=== PATIENT | male | born 1955 | race African-American/Black ===

== ENCOUNTER → 2016-04-12 | Outpatient (CLI) | payer OTHER | LOC: OD 10:17 | PROVIDERS: ATTEND Family Medicine | DX: M25.562 Pain in left knee (principal) ==

== ENCOUNTER 2018-04-17 21:52 | Emergency (ER) | payer OTHER ==
[2018-04-17] MEDS ORDERED: IPRATROPIUM/ALBUTEROL 0.5-2.5 MG/3 ML AMPUL NEB ONE (22:12)
[2018-04-17] MEDS ORDERED: PREDNISONE 20 MG TABLET PO ONE (22:12)
[2018-04-17] MEDS ORDERED: ACETAMINOPHEN 325 MG TABLET PO ONE (22:18)
[2018-04-17] MEDS: ALBUTEROL SULFATE 0.083% NEB 2.5 MG/3 ML AMPUL NEB SCH ×2 (22:26→22:28)
--- NOTE | 2018-04-17 22:38 | RADIOLOGY REPORT (SQ) ---
EXAM DESCRIPTION: XR CHEST 2 VIEWS COMPLETED DATE/TME: 04/17/2018 00:00 CLINICAL HISTORY: 62 years, Male, COUGH/DIFFICULTY BREATHING COMPARISON: 03/14/2013 chest NUMBER OF VIEWS: 2 TECHNIQUE: Frontal and lateral views of the chest LIMITATIONS: None. FINDINGS: Heart size is normal. Lungs are clear. No pneumothorax IMPRESSION: Negative chest copyright 2010 [employer]- All Rights Reserved
[2018-04-17 23:02] LABS: ABSOLUTE EOSINOPHILS # (AUTO) 0.1 10^3/uL (0.0-0.6); ABSOLUTE LYMPHOCYTES (AUTO) 0.6 10^3/uL (0.5-4.7); ABSOLUTE MONOCYTES (AUTO) 0.8 10^3/uL (0.1-1.4); ABSOLUTE NEUT (AUTO) 5.6 10^3/uL (1.7-8.2); BASOPHILS % (AUTO) 0.6 % (0-2); EOSINOPHILS % (AUTO) 0.9 % (0-6); HEMATOCRIT 39.3 % (37.9-51.0); HEMOGLOBIN 13.3 g/dL (13.5-17.0); LYMPHOCYTES % (AUTO) 8.6 % (13-45); MEAN CORPUSCULAR HEMOGLOBIN 28.6 pg (27.0-33.4); MEAN CORPUSCULAR HGB CONC 33.9 g/dL (32.0-36.0); MEAN CORPUSCULAR VOLUME 85 fl (80-97); MONOCYTES % (AUTO) 11.7 % (3-13); PLATELET COUNT 193 10^3/uL (150-450); RED BLOOD COUNT 4.65 10^6/uL (4.35-5.55); RED CELL DISTRIBUTION WIDTH 13.4 % (11.5-14.0); SEGMENTED NEUTROPHILS % (AUTO) 78.2 % (42-78); TOTAL CELLS COUNTED % (AUTO) 100 %; WHITE BLOOD COUNT 7.2 10^3/uL (4.0-10.5)
--- NOTE | 2018-04-17 23:05 | ER Document Report ---
ED Flu Like - General Chief Complaint: Flu Symptoms Stated Complaint: COUGH/FEVER Time Seen by Provider: 04/17/18 23:04 Primary Care Provider: WESTON ARREDONDO MD [COMMUNITY BASED STAFF] - Follow up as needed Information source: Patient, Relative Notes: Patient is a 62-year-old male with no significant past medical history who presents with 2 days of fever associated with a nonproductive cough, body aches, chills, and malaise. Patient is unsure of any sick contacts. He denies any confusion or disorientation, no chest pain, no difficulty breathing, no difficulty urinating, and no ataxia. TRAVEL OUTSIDE OF THE [place] IN LAST 30 DAYS: No - HPI Onset: Other - 2 days ago Timing/Duration: Constant Quality of pain: Achy Severity: Moderate Pain Level: Denies Recent travel: No: Domestic, International, Air, Bus, Car, Train [place] exposure: No Tick/Insect bite: No: Confirmed, Suspected, Camping/Hiking, Other Associated symptoms: Body/muscle aches, Chills, Nonproductive cough, Fever Similar symptoms previously: No Recently seen / treated by doctor: No - Related Data Allergies/Adverse Reactions: No Known Drug Allergies Allergy (Verified 04/09/13 10:00) Past Medical History - General Information source: Patient, Relative - Social History Smoking Status: Never Smoker Chew tobacco use (# tins/day): No Frequency of alcohol use: twice a week Drug Abuse: None Lives with: Family Family History: None, Reviewed & Not Pertinent Patient has suicidal ideation: No Patient has homicidal ideation: No - Past Medical History Cardiac Medical History: Reports: Hx Hypertension - CONTROLLED WITH MEDICATIONS Denies: Hx Coronary Artery Disease - HIGH CHOLESTEROL, Hx Heart Attack Pulmonary Medical History: Reports: None Denies: Hx Asthma, Hx Bronchitis, Hx COPD, Hx Pneumonia EENT Medical History: Reports: None Neurological Medical History: Reports: None. Denies: Hx Cerebrovascular Accident, Hx Seizures Endocrine Medical History: Reports: None Renal/ Medical History: Reports: None. Denies: Hx Peritoneal Dialysis Malignancy Medical History: Reports None GI Medical History: Reports: None Musculoskeletal Medical History: Reports Hx Arthritis - RIGHT KNEE Skin Medical History: Reports None Psychiatric Medical History: Reports: Hx Depression - PTSD, hallucinations Traumatic Medical History: Reports: None Infectious Medical History: Reports: None Surgical Hx: Negative Past Surgical History: Reports: Hx Orthopedic Surgery - R knee - Immunizations Immunizations up to date: Yes Hx Diphtheria, Pertussis, Tetanus Vaccination: Yes History of Influenza Vaccine for 12/2016 - 05/2017 Season: No Review of Systems - Review of Systems Constitutional: See HPI, Chills, Fever, Malaise EENT: No symptoms reported Cardiovascular: No symptoms reported Respiratory: See HPI, Cough Gastrointestinal: No symptoms reported Genitourinary: No symptoms reported Male Genitourinary: No symptoms reported Musculoskeletal: No symptoms reported Skin: No symptoms reported Hematologic/Lymphatic: No symptoms reported Neurological/Psychological: No symptoms reported -: Yes All other systems reviewed and negative Physical Exam - Vital signs Vitals: Temp Pulse Resp BP Pulse Ox 101.9 F H 87 20 143/78 H 98 04/17/18 22:11 04/17/18 22:11 04/17/18 22:11 04/17/18 22:11 04/17/18 22:11 Interpretation: Normal - Notes Notes: Tired appearing but in no acute distress - General General appearance: Appears well, Alert - HEENT Head: Normocephalic, Atraumatic Eyes: Normal Pupils: PERRL - Respiratory Respiratory status: No respiratory distress Chest status: Nontender Breath sounds: Normal Chest palpation: Normal - Cardiovascular Rhythm: Tachycardia Heart sounds: Normal auscultation Murmur: No - Abdominal Inspection: Normal Distension: No distension Bowel sounds: Normal Tenderness: Nontender Organomegaly: No organomegaly - Rectal Notes: Deferred - Genitourinary Notes: Deferred - Back Back: Normal, Nontender - Extremities General upper extremity: Normal inspection, Nontender, Normal color, Normal ROM, Normal temperature General lower extremity: Normal inspection, Nontender, Normal color, Normal ROM, Normal temperature, Normal weight bearing. No: Jose's sign - Neurological Neuro grossly intact: Yes Cognition: Normal Orientation: AAOx4 Jones Coma Scale Eye Opening: Spontaneous Jones Coma Scale Verbal: Oriented Jones Coma Scale Motor: Obeys Commands Nancy Coma Scale Total: 15 Speech: Normal Motor strength normal: LUE, RUE, LLE, RLE Sensory: Normal - Psychological Associated symptoms: Normal affect, Normal mood - Skin Skin Temperature: Warm Skin Moisture: Dry Skin Color: Normal Course - Re-evaluation Re-evalutation: 04/18/18 00:14 Chest x-ray shows no acute pneumonia, lab work thus far is unremarkable. Cardiac enzymes and influenza swab still pending. Temperature has already started to resolve after Tylenol. Will give IV fluids and reassess. 04/18/18 01:55 Patient is influenza A positive. However he is outside of the window for Tamiflu. Patient will be discharged home with return precautions and follow-up. Patient voices understanding and agreeing with the plan. - Vital Signs Vital signs: Temp Pulse Resp BP Pulse Ox 100.7 F H 87 21 H 143/78 H 98 04/17/18 23:14 04/17/18 22:11 04/17/18 23:00 04/17/18 22:11 04/17/18 23:00 - Laboratory Result Diagrams: 04/17/18 22:40 04/17/18 22:40 Laboratory results interpreted by me: 04/17/18 04/17/18 04/17/18 22:40 22:40 22:40 Hgb 13.3 L Seg Neutrophils % 78.2 H Lymphocytes % 8.6 L VBG HCO3 32.3 H Sodium 134.3 L Chloride 94 L Carbon Dioxide 31 H Glucose 120 H Urine Ascorbic Acid 04/18/18 00:28 Hgb Seg Neutrophils % Lymphocytes % VBG HCO3 Sodium Chloride Carbon Dioxide Glucose Urine Ascorbic Acid 40 H - Diagnostic Test Radiology reviewed: Image reviewed, Reports reviewed - EKG Interpretation by Me EKG shows normal: Sinus rhythm Rate: Tachycardia Rhythm: NSR [place]/QRS: No: Right axis deviation, Left axis deviation, RBBB, LBBB, IVCD, LAHB/LAFB, LPHB/LPFB, Bifasicular block Voltage: No: Increased voltage, Consistant with LVH, Decreased voltage, Throughout, Limb leads P Waves: No: TATI, LAE, Absent, AV Dissociation, Other When compared to previous EKG there are: No significant change Discharge - Discharge Clinical Impression: Viral syndrome, Influenza due to influenza virus, type A, human Condition: Good Disposition: HOME, SELF-CARE Instructions: Influenza ([facility]) [id number] Additional Instructions: Please follow-up with your regular physician as needed. Return to the emergency department if you experience profound weakness, chest pain, or have any other concerning symptom. Prescriptions: Hydrocodone/Chlorphen P-Stirex [Tussionex Pennkinetic Susp] 10 ml PO BID PRN #[id number] [email or web address] PRN Reason: Cough Referrals: WESTON ARREDONDO MD [COMMUNITY BASED STAFF] - Follow up as needed Print Language: Bermudian
[2018-04-17 23:08] LABS: INTERNATIONAL RATION (INR) 0.92; PROTHROMBIN TIME 12.9 SEC (11.4-15.4)
[2018-04-17 23:12] LABS: VENOUS BLOOD BASE EXCESS 6.4 mmol/L; VENOUS BLOOD HCO3 32.3 mmol/L (20-32); VENOUS BLOOD PCO2 51.6 mmHg (35-63); VENOUS BLOOD PH 7.42 (7.30-7.42)
[2018-04-17 23:18] LABS: A TYPE INFLUENZA AG POSITIVE (NEGATIVE); B INFLUENZA AG NEGATIVE (NEGATIVE)
[2018-04-17 23:37] LABS: ALANINE AMINOTRANSFERASE 37 U/L (21-72); ALBUMIN 4.6 g/dL (3.5-5.0); ALKALINE PHOSPHATASE 59 U/L (38-126); ANION GAP 9 (5-19); ASPARTATE AMINO TRANSFERASE 31 U/L (17-59); BILIRUBIN,DIRECT 0.3 mg/dL (0.0-0.4); BILIRUBIN,TOTAL 0.4 mg/dL (0.2-1.3); BLOOD UREA NITROGEN 10 mg/dL (7-20); CARBON DIOXIDE 31 mmol/L (22-30); CHLORIDE 94 mmol/L (98-107); GLUCOSE 120 mg/dL (75-110); POTASSIUM 3.6 mmol/L (3.6-5.0); SODIUM 134.3 mmol/L (137-145); TOTAL PROTEIN 7.4 g/dL (6.3-8.2)
[2018-04-18] MEDS ORDERED: NORMAL SALINE 1000 ML 1,000 ML IV ONE (00:07)
[2018-04-18] MEDS ORDERED: DEXAMETHASONE SOD PHOS INJ 10 MG/1 ML VIAL IV ONE (00:08)
[2018-04-18 00:40] LABS: APPEARANCE,URINE CLEAR; BILIRUBIN,URINE NEGATIVE (NEGATIVE); COLOR,URINE YELLOW; GLUCOSE, URINE NEGATIVE (NEGATIVE); KETONES,URINE NEGATIVE (NEGATIVE); LEUKOCYTE ESTERASE,URINE NEGATIVE (NEGATIVE); NITRITE,URINE NEGATIVE (NEGATIVE); PROTEIN,URINE NEGATIVE (NEGATIVE); URINE SPECIFIC GRAVITY 1.015; UROBILINOGEN,URINE NEGATIVE mg/dL (<2.0)
[2018-04-18 02:15] VITALS: BP 132/71
--- NOTE | 2018-04-18 07:26 | EKG REPORT ---
SEVERITY:- OTHERWISE NORMAL ECG - SINUS TACHYCARDIA ATRIAL PREMATURE COMPLEX : Confirmed by: Angelina Couch MD 18-Apr-2018 07:25:40
== END 2018-04-18 02:24 | disposition home or self-care (01) ==
LOC: ER 21:52
DX: J10.1 Influenza due to other identified influenza virus with other respiratory manifestations (principal); B34.9 Viral infection, unspecified; R05 Cough; R50.9 Fever, unspecified; M79.10 Myalgia, unspecified site; R53.81 Other malaise; I10 Essential (primary) hypertension; Z79.899 Other long term (current) drug therapy
CPT/HCPCS: 93005; 94640 ×2; 99284; 96365; 36415; 87040; 87086; 85025; 85610; 80053; 81001; 82803; 83605; 87804; 71046; 93010; J7512; J7030; J1100; J7620

== ENCOUNTER 2018-12-28 07:30 | Inpatient (IN) | payer MEDICARE, OTHER ==
[2019-01-28] MEDS ORDERED: CEFAZOLIN INJ 1 GM VIAL IV PRN (05:00)
[2019-01-28] MEDS ORDERED: PANTOPRAZOLE SODIUM 20 MG TABLET.DR PO PRN (05:00)
[2019-01-28] MEDS ORDERED: LIDOCAINE 0.5% INJ-PF (5 MG/ML) 50 ML SDV SUBCUT PRN (05:00)
[2019-01-28] MEDS ORDERED: CEFAZOLIN INJ 1 GM VIAL ONE (05:00)
[2019-01-28] MEDS ORDERED: IBUPROFEN 800 MG in NORMAL SALINE 250 ML IV PRN (05:00)
[2019-01-28] MEDS ORDERED: PANTOPRAZOLE SODIUM 20 MG TABLET.DR PO ONE (05:00)
[2019-01-28] MEDS ORDERED: VANCOMYCIN HCL 1,000 MG in DEXTROSE 5%-WATER 250 ML IV PRN (05:00)
[2019-01-28] MEDS ORDERED: OXYCODONE HCL SR 10 MG TABLET PO PRN (05:00)
[2019-01-28] MEDS ORDERED: OXYCODONE HCL SR 10 MG TABLET PO ONE (05:00)
[2019-01-28] MEDS ORDERED: BUPIVACAINE INJ/PF LIPOSOME/PF 266 MG/20 ML SDV INJ PRN (05:00)
[2019-01-28] MEDS ORDERED: LACTATED RINGERS 1000 ML IV PRN (05:00)
[2019-01-28] MEDS ORDERED: ONDANSETRON HCL INJ/PF 4 MG/2 ML SDV ONE (06:24)
[2019-01-28] MEDS ORDERED: MIDAZOLAM 2 MG/2 ML INJ ONE (06:24)
[2019-01-28] MEDS ORDERED: FENTANYL CITRATE INJ/PF 100 MCG/2 ML AMPUL ONE (06:24)
[2019-01-28] MEDS ORDERED: DEXAMETHASONE SOD PHOSPHATE INJ 4 MG/1 ML VIAL ONE (06:24)
[2019-01-28] MEDS ORDERED: TRANEXAMIC ACID INJ/PF 1,000 MG/10 ML SDV ONE ×2 (06:25→09:53)
[2019-01-28] MEDS ORDERED: PROPOFOL INJ 200 MG/20 ML VIAL IV ONE ×2 (06:25→09:09)
[2019-01-28] MEDS ORDERED: LIDOCAINE 0.5% INJ-PF (5 MG/ML) 50 ML SDV ONE (06:27)
[2019-01-28] MEDS ORDERED: PROMETHAZINE HCL INJ 25 MG/1 ML VIAL IV PRN ×2 (08:01)
[2019-01-28] MEDS ORDERED: DIPHENHYDRAMINE HCL 50 MG/ML VIAL IV PRN ×2 (08:01→08:43)
[2019-01-28] MEDS ORDERED: ONDANSETRON HCL INJ/PF 4 MG/2 ML SDV IV PRN ×2 (08:01→08:43)
[2019-01-28] MEDS ORDERED: MEPERIDINE HCL/PF INJ 25 MG/1 ML DISP.SYRIN IV PRN (08:01)
[2019-01-28] MEDS ORDERED: MORPHINE SULFATE 10 MG/ML INJ IV PRN (08:01)
[2019-01-28] MEDS ORDERED: FENTANYL CITRATE INJ/PF 100 MCG/2 ML AMPUL IV PRN ×3 (08:01)
[2019-01-28] MEDS ORDERED: HYDROXYZINE PAMOATE 50 MG CAPSULE PO PRN (08:42)
--- NOTE | 2019-01-28 08:42 | Operative Report ---
Operative Report DATE OF SURGERY: 01/28/19 PREOPERATIVE DIAGNOSIS: Right knee arthritis OPERATION: Right knee arthroplasty SURGEON: HETAL CHISHOLM ANESTHESIA: Spinal TISSUE REMOVED OR ALTERED: Bone to pathology ESTIMATED BLOOD LOSS: 75 PROCEDURE: Implants used: Femur: [place] triathlon size 6 CR uncemented femur Tibia: 5 uncemented tibia Tibial liner: 9 mm CS insert Patella: 38 mm oval uncemented patella Procedure with the patient supine on the operating table the right the limb is prepped and draped in a sterile fashion. The limb was elevated for exsanguination and the tourniquet inflated to 280 torr. A standard midline median parapatellar approach the knee is taken. Access is gained to the femoral canal through the intercondylar notch. Intramedullary alignment instrumentation used to resect 10 mm of distal femur in 5 of valgus. Sizing guide indicated a size 6 femur. Appropriate cutting jig is then used to fashion anterior posterior and chamfer cuts. A trial reduction femurs performed and this is judged to be adequate. Attention was next turned to the tibia. Using an extra medullary alignment system 9 millimeters was resected off the lateral tibial plateau. This is sized to a size 5 tibia. A trial reduction was now performed with a 6 femur and a 5 tibia using a 9 millimeters spacer. It is full extension and central patellofemoral tracking. The articular surface the patella was next resected using an oscillating saw. All trial implants were removed. The above implants are impacted into place. The tourniquet was deflated hemostasis obtained the wound is then closed in layers using interrupted Vicryl followed by shamika. A sterile compressive dressing was applied and the patient returned to recovery room in satisfactory condition.
[2019-01-28] MEDS ORDERED: ONDANSETRON 4 MG TAB.RAPDIS PO PRN (08:43)
[2019-01-28] MEDS ORDERED: MAG HYDROX/AL HYDROX/SIMETH SUSP 30 ML UDCUP PO PRN (08:43)
[2019-01-28] MEDS ORDERED: TRANEXAMIC ACID INJ/PF 1,000 MG/10 ML SDV IV PRN (09:14)
[2019-01-28] MEDS ORDERED: (PENDING PHARMACY ID) (Venlafaxine Hcl [Venlafaxine Hcl Er] 225 MG) PO SCH (10:00)
--- NOTE | 2019-01-28 10:54 | RADIOLOGY REPORT (SQ) ---
EXAM DESCRIPTION: KNEE RIGHT 2 VIEWS COMPLETED DATE/TIME: 01/28/2019 9:33 am REASON FOR STUDY: Post OP -Long Cassette in PACU M17.11 UNILATERAL PRIMARY OSTEOARTHRITIS, RIGHT KN EE COMPARISON: None. NUMBER OF VIEWS: Two view(s). TECHNIQUE: Digital radiographic images of the right knee post-procedure. LIMITATIONS: None. FINDINGS: BONES: No worrisome or unexpected findings post-procedure. DEVICE: Total knee arthroplasty SOFT TISSUES: No worrisome findings. Expected postoperative soft tissue changes. IMPRESSION: SATISFACTORY POSTOPERATIVE RIGHT KNEE. TECHNICAL DOCUMENTATION: JOB ID: [id number] [employer]- All Rights Reserved Reading location - IP/workstation name: [email or web address]
[2019-01-28] MEDS: SENNOSIDES/DOCUSATE 8.6-50 MG 1 EACH TABLET PO SCH ×2 (12:39→18:19)
[2019-01-28] MEDS: ASPIRIN 81 MG TABLET, CHEWABLE PO SCH (12:40)
[2019-01-28] MEDS: PRENATAL VITAMIN W DHA CAPSULE PO SCH (12:40)
[2019-01-28] MEDS: OXYCODONE HCL IR 5 MG TABLET PO PRN ×2 (12:40→20:57)
[2019-01-28] MEDS: HYDROCHLOROTHIAZIDE 25 MG TABLET PO SCH (12:41)
[2019-01-28] MEDS: OXYCODONE HCL SR 10 MG TABLET PO SCH ×2 (13:36→21:25)
[2019-01-28] MEDS: RISPERIDONE 1 MG TABLET PO SCH ×2 (14:20→18:18)
[2019-01-28] MEDS ORDERED: VENLAFAXINE HCL 75 MG CAP.SR.24H PO ONE (14:30)
[2019-01-28] MEDS: IBUPROFEN 800 MG in NORMAL SALINE 250 ML IV SCH ×2 (14:33→22:25)
[2019-01-28] MEDS: VENLAFAXINE HCL 75 MG CAP.SR.24H PO SCH (14:35)
[2019-01-28] MEDS ORDERED: VANCOMYCIN HCL 1,000 MG in DEXTROSE 5%-WATER 250 ML IV ONE (20:45)
[2019-01-28] MEDS: RINGERS SOLUTION,LACTATED 1,000 ML IV PRN (20:49)
[2019-01-28] MEDS: ATORVASTATIN CALCIUM 80 MG TABLET PO SCH (21:24)
[2019-01-29] MEDS: PANTOPRAZOLE SODIUM 40 MG TABLET.DR PO SCH (05:22)
[2019-01-29] MEDS: IBUPROFEN 800 MG in NORMAL SALINE 250 ML IV SCH ×3 (05:22→21:05)
[2019-01-29 05:38] LABS: HEMATOCRIT 28.5 % (37.9-51.0); HEMOGLOBIN 9.6 g/dL (13.5-17.0); MEAN CORPUSCULAR HEMOGLOBIN 27.9 pg (27.0-33.4); MEAN CORPUSCULAR HGB CONC 33.8 g/dL (32.0-36.0); MEAN CORPUSCULAR VOLUME 83 fl (80-97); PLATELET COUNT 200 10^3/uL (150-450); RED BLOOD COUNT 3.45 10^6/uL (4.35-5.55); RED CELL DISTRIBUTION WIDTH 13.5 % (11.5-14.0); WHITE BLOOD COUNT 7.1 10^3/uL (4.0-10.5)
[2019-01-29 06:22] LABS: BLOOD UREA NITROGEN 15 mg/dL (7-20); CALCIUM 8.2 mg/dL (8.4-10.2); GLUCOSE 115 mg/dL (75-110); POTASSIUM 4.4 mmol/L (3.6-5.0)
[2019-01-29 06:28] LABS: ANION GAP 5 (5-19); CARBON DIOXIDE 31 mmol/L (22-30); CHLORIDE 102 mmol/L (98-107)
[2019-01-29] MEDS: RINGERS SOLUTION,LACTATED 1,000 ML IV PRN ×2 (06:40→14:45)
--- NOTE | 2019-01-29 07:11 | PDOC DISCHARGE SUMMARY ---
Impression - Admit/DC Date/PCP Admission Date/Primary Care Provider: 01/28/19 05:34 [facility] Discharge Date: 01/29/19 - Additional Information Resuscitation Status: Full Code Discharge Diet: Regular Discharge Activity: Balance Activity w/Rest, No tub bath Referrals: HETAL CHISHOLM MD [ACTIVE STAFF] - 02/07/19 9:00 am Home Medications: Aspirin [Aspirin 81 mg Chewable Tablet] 81 mg PO DAILY 04/09/13 Atorvastatin Calcium 40 mg PO QHS 04/09/13 Hydrochlorothiazide 25 mg PO DAILY 04/09/13 Hydroxyzine Pamoate [Vistaril 50 mg Capsule] 25 mg PO QHS PRN 04/09/13 Risperidone 0.5 mg PO BID 04/09/13 Venlafaxine HCl [Venlafaxine Hcl Er] 225 mg PO DAILY 04/09/13 History of Present Illiness History of Present Illness: JEFFERSON MIRELES is a 63 year old male 63-year-old black male with progressive right knee pain and functional disability second osteoarthritis. Patient admitted for elective right knee arthroplasty. Hospital Course Hospital Course: Patient admitted through the operating where she undergoes uncomplicated right knee arthroplasty. Return to the point satisfactory vision. He has some issues with nausea and malaise which limited his progress with physical therapy on the day of surgery. On the first postoperative morning his compressive dressing is removed. Patient is able to do straight leg raise without difficulty. Underlying OpSite dressing is clean dry and intact. Distal neurovascular examination is intact. Physical Exam Vital Signs: Temp Pulse Resp BP Pulse Ox 36.8 C 73 17 111/57 L 91 L 01/28/19 23:56 01/28/19 23:56 01/28/19 23:56 01/28/19 23:56 01/28/19 23:56 Intake & Output 01/28/19 01/29/19 01/30/19 06:59 06:59 06:59 Intake Total 0 4670 Output Total 1900 Balance 0 2770 Weight 91.4 kg General appearance: PRESENT: no acute distress, mild distress Head exam: PRESENT: normocephalic Respiratory exam: PRESENT: unlabored Cardiovascular exam: PRESENT: RRR Pulses: PRESENT: +1 pedal pulses bilateral Vascular exam: PRESENT: normal capillary refill GI/Abdominal exam: PRESENT: soft Rectal exam: PRESENT: deferred Extremities exam: PRESENT: other - Right lower extremity dressing clean dry and intact. Minimal pedal edema. Distal neurovascular examination is intact. Neurological exam: PRESENT: alert, awake, oriented to person, oriented to place, oriented to time, oriented to situation. ABSENT: motor sensory deficit Psychiatric exam: PRESENT: appropriate affect, normal mood. ABSENT: homicidal ideation, suicidal ideation Skin exam: PRESENT: dry, intact, warm. ABSENT: cyanosis, rash Results Laboratory Results: WBC 7.1 10^3/uL (4.0-10.5) 01/29/19 05:02 RBC 3.45 10^6/uL (4.35-5.55) L 01/29/19 05:02 Hgb 9.6 g/dL (13.5-17.0) L 01/29/19 05:02 Hct 28.5 % (37.9-51.0) L 01/29/19 05:02 MCV 83 fl (80-97) 01/29/19 05:02 MCH 27.9 pg (27.0-33.4) 01/29/19 05:02 MCHC 33.8 g/dL (32.0-36.0) 01/29/19 05:02 RDW 13.5 % (11.5-14.0) 01/29/19 05:02 Plt Count 200 10^3/uL (150-450) 01/29/19 05:02 Sodium 137.6 mmol/L (137-145) 01/29/19 05:02 Potassium 4.4 mmol/L (3.6-5.0) 01/29/19 05:02 Chloride 102 mmol/L (98-107) 01/29/19 05:02 Carbon Dioxide 31 mmol/L (22-30) H 01/29/19 05:02 Anion Gap 5 (5-19) 01/29/19 05:02 BUN 15 mg/dL (7-20) 01/29/19 05:02 Creatinine 1.13 mg/dL (0.52-1.25) 01/29/19 05:02 Est GFR ( Amer) > 60 (>60) 01/29/19 05:02 Est GFR (MDRD) Non-Af > 60 (>60) 01/29/19 05:02 Glucose 115 mg/dL (75-110) H 01/29/19 05:02 Calcium 8.2 mg/dL (8.4-10.2) L 01/29/19 05:02 Impressions: Knee X-Ray 01/28/19 08:44 IMPRESSION: SATISFACTORY POSTOPERATIVE RIGHT KNEE. Plan Plan of Treatment: Patient be discharged with home health services and DME. Follow-up with Dr. Chisholm and [facility] for surgery in 2 weeks for staple removal. Stroke Is this a Stroke Patient?: No Stroke Pt being discharged on Anti-thrombolytic therapy?: Yes Acute Heart Failure - Is this a Heart Failure Patient?: No
[2019-01-29] MEDS: OXYCODONE HCL IR 5 MG TABLET PO PRN (08:23)
[2019-01-29] MEDS: ASPIRIN 81 MG TABLET, CHEWABLE PO SCH (09:49)
[2019-01-29] MEDS: PRENATAL VITAMIN W DHA CAPSULE PO SCH (09:50)
[2019-01-29] MEDS: SENNOSIDES/DOCUSATE 8.6-50 MG 1 EACH TABLET PO SCH ×2 (09:50→18:05)
[2019-01-29] MEDS: RISPERIDONE 1 MG TABLET PO SCH ×2 (09:50→18:04)
[2019-01-29] MEDS: HYDROCHLOROTHIAZIDE 25 MG TABLET PO SCH (09:53)
[2019-01-29] MEDS: VENLAFAXINE HCL 75 MG CAP.SR.24H PO SCH (10:10)
[2019-01-29] MEDS: OXYCODONE HCL SR 10 MG TABLET PO SCH ×2 (10:11→21:06)
[2019-01-29] MEDS: ATORVASTATIN CALCIUM 80 MG TABLET PO SCH (21:06)
[2019-01-30] MEDS: RINGERS SOLUTION,LACTATED 1,000 ML IV PRN (02:20)
[2019-01-30] MEDS: PANTOPRAZOLE SODIUM 40 MG TABLET.DR PO SCH (05:05)
[2019-01-30] MEDS: IBUPROFEN 800 MG in NORMAL SALINE 250 ML IV SCH (05:06)
[2019-01-30 07:18] LABS: HEMATOCRIT 27.3 % (37.9-51.0); HEMOGLOBIN 9.3 g/dL (13.5-17.0); MEAN CORPUSCULAR HEMOGLOBIN 28.3 pg (27.0-33.4); MEAN CORPUSCULAR HGB CONC 34.2 g/dL (32.0-36.0); MEAN CORPUSCULAR VOLUME 83 fl (80-97); PLATELET COUNT 170 10^3/uL (150-450); RED CELL DISTRIBUTION WIDTH 13.8 % (11.5-14.0); WHITE BLOOD COUNT 6.9 10^3/uL (4.0-10.5)
[2019-01-30] MEDS: HYDROCHLOROTHIAZIDE 25 MG TABLET PO SCH (10:38)
[2019-01-30] MEDS: RISPERIDONE 1 MG TABLET PO SCH (10:59)
[2019-01-30] MEDS: ASPIRIN 81 MG TABLET, CHEWABLE PO SCH (10:59)
[2019-01-30] MEDS: PRENATAL VITAMIN W DHA CAPSULE PO SCH (10:59)
[2019-01-30] MEDS: SENNOSIDES/DOCUSATE 8.6-50 MG 1 EACH TABLET PO SCH (10:59)
[2019-01-30] MEDS: VENLAFAXINE HCL 75 MG CAP.SR.24H PO SCH (11:00)
[2019-01-30 13:47] VITALS: BP 121/70
== END 2019-01-30 14:36 | disposition home health service (06) | DRG 470 ==
LOC: INOR 01-28 05:34 → 4S 01-28 10:12
PROVIDERS: ADMIT Orthopaedic Surgery; ATTEND Orthopaedic Surgery
PROC: 0SRC0JA Replacement of Right Knee Joint with Synthetic Substitute, Uncemented, Open Approach (ICD-10-PCS; principal; 2019-01-28 07:30)
DX: M17.11 Unilateral primary osteoarthritis, right knee (principal); I10 Essential (primary) hypertension; F41.9 Anxiety disorder, unspecified; F32.9 Major depressive disorder, single episode, unspecified; M54.9 Dorsalgia, unspecified; Z79.82 Long term (current) use of aspirin; G47.00 Insomnia, unspecified
CPT/HCPCS: 36415; 80048; 85027; 88311; 94799; C1776; J0690; J1100; J1741; J2250; J2405; J2704; J3010; J3370; J3490; J7050; J7060; J7120

== ENCOUNTER → 2019-01-03 | Outpatient (CLI) | payer OTHER, MEDICARE ==
--- NOTE | 2019-01-03 08:13 | RADIOLOGY REPORT (SQ) ---
EXAM DESCRIPTION: CHEST PA/LATERAL COMPLETED DATE/TIME: 01/03/2019 7:50 am REASON FOR STUDY: PRE-OP COMPARISON: Two-view chest 04/17/2018, 03/14/2013 EXAM PARAMETERS: NUMBER OF VIEWS: two views TECHNIQUE: Digital Frontal and Lateral radiographic views of the chest acquired. RADIATION DOSE: NA LIMITATIONS: none FINDINGS: LUNGS AND PLEURA: No opacities, masses or pneumothorax. No pleural effusion. MEDIASTINUM AND HILAR STRUCTURES: No masses or contour abnormalities. HEART AND VASCULAR STRUCTURES: Heart normal size. No evidence for failure. BONES: No acute findings. HARDWARE: None in the chest. OTHER: No other significant finding. IMPRESSION: NO SIGNIFICANT RADIOGRAPHIC FINDING IN THE CHEST. TECHNICAL DOCUMENTATION: JOB ID: [id number] [employer]- All Rights Reserved Reading location - IP/workstation name: [email or web address]
[2019-01-03 08:29] LABS: APPEARANCE,URINE CLEAR; BILIRUBIN,URINE NEGATIVE (NEGATIVE); COLOR,URINE YELLOW; GLUCOSE, URINE NEGATIVE (NEGATIVE); KETONES,URINE NEGATIVE (NEGATIVE); LEUKOCYTE ESTERASE,URINE NEGATIVE (NEGATIVE); NITRITE,URINE NEGATIVE (NEGATIVE); PROTEIN,URINE NEGATIVE (NEGATIVE); URINE SPECIFIC GRAVITY 1.009; UROBILINOGEN,URINE NEGATIVE mg/dL (<2.0)
[2019-01-03 08:33] LABS: ABSOLUTE BASOPHILS # (AUTO) 0.1 10^3/uL (0.0-0.2); ABSOLUTE EOSINOPHILS # (AUTO) 0.4 10^3/uL (0.0-0.6); ABSOLUTE LYMPHOCYTES (AUTO) 1.6 10^3/uL (0.5-4.7); ABSOLUTE MONOCYTES (AUTO) 0.3 10^3/uL (0.1-1.4); ABSOLUTE NEUT (AUTO) 2.4 10^3/uL (1.7-8.2); BASOPHILS % (AUTO) 1.1 % (0-2); EOSINOPHILS % (AUTO) 7.5 % (0-6); HEMATOCRIT 40.6 % (37.9-51.0); HEMOGLOBIN 13.2 g/dL (13.5-17.0); LYMPHOCYTES % (AUTO) 32.6 % (13-45); MEAN CORPUSCULAR HEMOGLOBIN 26.9 pg (27.0-33.4); MEAN CORPUSCULAR HGB CONC 32.5 g/dL (32.0-36.0); MEAN CORPUSCULAR VOLUME 83 fl (80-97); MONOCYTES % (AUTO) 7.2 % (3-13); PLATELET COUNT 229 10^3/uL (150-450); RED CELL DISTRIBUTION WIDTH 13.6 % (11.5-14.0); TOTAL CELLS COUNTED % (AUTO) 100 %; WHITE BLOOD COUNT 4.8 10^3/uL (4.0-10.5)
[2019-01-03 08:47] LABS: SEGMENTED NEUTROPHILS % (AUTO) 51.6 % (42-78)
[2019-01-03 08:53] LABS: ANION GAP 7 (5-19); BLOOD UREA NITROGEN 17 mg/dL (7-20); CALCIUM 9.4 mg/dL (8.4-10.2); CARBON DIOXIDE 33 mmol/L (22-30); CHLORIDE 99 mmol/L (98-107); GLUCOSE 87 mg/dL (75-110); POTASSIUM 4.4 mmol/L (3.6-5.0)
--- NOTE | 2019-01-03 13:05 | EKG REPORT ---
SEVERITY:- NORMAL ECG - SINUS RHYTHM : Confirmed by: Ritchie Virgen MD 03-Jan-2019 13:04:14
== END ==
LOC: OD 07:20
PROVIDERS: ATTEND Orthopaedic Surgery
DX: Z01.810 Encounter for preprocedural cardiovascular examination (principal); Z01.811 Encounter for preprocedural respiratory examination; Z01.812 Encounter for preprocedural laboratory examination; M17.11 Unilateral primary osteoarthritis, right knee; I10 Essential (primary) hypertension
CPT/HCPCS: 36415; 71046; 80048; 81001; 83036; 85025; 93005; 93010